=== PATIENT | male | born 1990 | race Two or more races ===

== ENCOUNTER 2023-12-09 20:27 | Emergency (ER) | payer MEDICAID ==
[~2023-12-09] VITALS: Ht 177.8 cm; Wt 73.0 kg
[2023-12-09 20:52] VITALS: BP 110/68; PULSE 70; RESP 20; TEMP 98; O2SAT 100
[2023-12-09] MEDS ORDERED: KEPP500 MT (22:30)
== END 2023-12-09 23:00 | disposition home or self-care (01) ==
LOC: ER 20:27
DX: Z76.0 Encounter for issue of repeat prescription (principal); G40.909 Epilepsy, unspecified, not intractable, without status epilepticus
CPT/HCPCS: 99281